=== PATIENT | female | born 1980 | race Caucasian/White ===

== ENCOUNTER 2016-08-20 20:10 | Emergency (ER) | payer OTHER ==
[~2016-08-20] VITALS: Ht 162.6 cm; Wt 104.5 kg
[~2016-08-20 20:10] MED LIST: ALBU8.5H4 IH; ASTELIN NASAL SPRAY INH; CETI10CA PO; DOCU-41 PO; HYDR-4003 PO; IBUP-1827 PO; NORG1TAB14 PO; P EP PO; PREN-12 PO; [UNRECOGNIZED DRUG - REMARK] PO
[2016-08-20 20:13] VITALS: BP 144/96; PULSE 103; RESP 16; O2SAT 100
[2016-08-20] MEDS ORDERED: ALBU8.5H2 INHALATION (20:17)
[2016-08-20] MEDS ORDERED: ALPR0.254 PO (20:17)
[2016-08-20] MEDS ORDERED: CETI10CA PO (20:17)
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
[2016-08-20] MEDS ORDERED: 0.9% Sodium Chloride 1,000 ML IV ONE (21:29)
[2016-08-20] MEDS ORDERED: Ondansetron 2 mg/mL 2 mL Inj IVPUSH ONE (21:30)
[2016-08-20 21:58] LABS: BASOPHILS % (AUTO) 0.2 % (0-3); EOSINOPHILS % (AUTO) 1.7 % (0-5); Mean Corpuscular Hemoglobin 29.1 pg (27.0-35.0); Mean Corpuscular Volume 86.3 fL (81-100); NEUTROPHILS % (AUTO) 79.3 % (40-74); Platelet Count 302 bil/L (150-400)
[2016-08-20 22:26] LABS: APPEARANCE,URINE HAZY (CLEAR,HAZY); COLOR,URINE STRAW (YELLOW); OCCULT BLOOD,URINE NEGATIVE (NEGATIVE); UROBILINOGEN,URINE NORMAL (NORMAL)
[2016-08-20 22:28] LABS: Magnesium 1.9 mg/dL (1.6-2.6)
[2016-08-20] MEDS ORDERED: cefTRIAXone Inj 1,000 MG in Dextrose 5% Minibag Plus 50 ML IV ONE (23:25)
[2016-08-21] MEDS ORDERED: CEPH-512 PO (00:15)
[2016-08-21 00:51] VITALS: BP 113/56; PULSE 77; RESP 16
--- NOTE | 2016-08-21 09:00 | DRSVH ---
PROCEDURE: CT ABDOMEN AND PELVIS WITH CONTRAST ([id number]) INDICATIONS: LLQ TTP TECHNIQUE: After the administration of intravenous contrast, 5 mm thick sections acquired from the diaphragm to the symphysis. 5 mm coronal and sagittal reformats were acquired. For radiation dose reduction, the following was used: automated exposure control, adjustment of mA and/or kV according to patient siz e. COMPARISON: None. FINDINGS: Image quality: Excellent. ABDOMEN: Lung bases: Lung bases are clear. Heart size is normal. Solid organs: There is diffuse hepatic infiltration. A small hyperdense area in the liver next to th e gallbladder fossa is most likely secondary to focal fat sparing. Liver and spleen are normal in siz e and enhancement. Gallbladder is normal. Biliary system is non dilated. Pancreas enhances normall y. No adrenal nodules. Kidneys demonstrate normal size and enhancement, without hydronephrosis. Peritoneum and bowel: Bowel loops demonstrate normal wall thickness and caliber. The appendix is no rmal. No free fluid or air. Nodes and vessels: No retroperitoneal or mesenteric adenopathy by size criteria. Aorta and inferior vena cava are normal in size. Miscellaneous: No ventral hernias. PELVIS: Genitourinary: Bladder wall thickness is normal. Uterus and ovaries are normal. No pathological fer e fluid. Miscellaneous: No inguinal hernias or adenopathy. Bones: No suspicious bony lesions. No vertebral body compression fractures. IMPRESSION: 1. No acute intra-abdominal process. No CT findings to explain left lower quadrant pain. 2. Hepatic steatosis. Dictated by: Kulwinder Mtz M.D. on 08/21/2016 at 8:56 Approved by: Kulwinder Mtz M.D. on 08/21/2016 at 8:59
== END 2016-08-21 00:52 | disposition home or self-care (01) ==
LOC: SED 20:10
DX: N39.0 Urinary tract infection, site not specified (principal); Z88.8 Allergy status to other drugs, medicaments and biological substances
CPT/HCPCS: 36415; 74177; 80053; 81000; 81025; 83690; 83735; 85025; 87086; 87088; 87147; 96361; 96365; 96375; 99285; J0696; J1885; J2405; J7030; Q9967